=== PATIENT | female | born 1995 | race Caucasian/White ===

== ENCOUNTER 2023-09-06 15:20 | Outpatient (CLI) | payer OTHER, SELFPAY | END 2023-09-06 15:21 | disposition home or self-care (01) | PROVIDERS: Visit Provider Advanced Practice Midwife | DX: Z34.93 Encounter for supervision of normal pregnancy, unspecified, third trimester (principal); Z3A.31 31 weeks gestation of pregnancy | CPT/HCPCS: 76805; 86592; 86787; 86850; J2791 ==

== ENCOUNTER 2023-10-11 14:15 | Outpatient (CLI) | payer OTHER, SELFPAY ==
[2023-10-12 12:37] LABS: Strep B DNA Probe Negative (Negative)
[2023-10-12 13:16] LABS: Strep B Susceptibility Needed? No
== END 2023-10-11 14:16 | disposition home or self-care (01) ==
LOC: NFLDREF 14:15
PROVIDERS: Visit Provider Advanced Practice Midwife
DX: Z34.93 Encounter for supervision of normal pregnancy, unspecified, third trimester (principal); Z3A.36 36 weeks gestation of pregnancy
CPT/HCPCS: 87081; 87653

== ENCOUNTER 2023-10-12 19:56 | Outpatient (CLI) | payer OTHER, SELFPAY | END 2023-10-12 19:57 | disposition home or self-care (01) | LOC: AMB 10-14 10:03 | PROVIDERS: Visit Provider Emergency Medicine Emergency Medical Services | DX: R55 Syncope and collapse (principal) | CPT/HCPCS: A0998 ==

== ENCOUNTER 2023-11-02 05:29 | Outpatient (CLI) | payer OTHER, SELFPAY ==
[2023-11-02 05:44] VITALS: BP 114/69; PULSE 91
[2023-11-02 05:59] VITALS: TEMP 36.8
[2023-11-02 06:09] LABS: Amnisure Rom* Negative
--- NOTE | 2023-11-02 06:44 | PC.OBNST ---
NST Note NST Note Start: 11/02/23 04:35 Freq: ONCE Status: Active Protocol: Document 11/02/23 06:43 LUZMA (Rec: 11/02/23 06:44 LUZMA [id number]) NST Note 1 Para (# of births) 0 EDC 11/07/23 Gestational Age In Weeks & Days 39 Weeks & 2 Days Patient Presented with Complaint(s) of Vaginal bleeding Reactive Yes Appropriate for Gestational Age Yes [place] Veronica RNC Date 11/02/23 Reactive Yes Appropriate for Gestational Age Yes [place] Gonsalez RNC Date 11/02/23 OB NST charge Yes Complete NST Note via Write Note Yes The provider's electronic signature indicates the NST is reactive/appropriate for gestational age. *Note to provider: If an addendum is required, open the patient's chart and click on the note under the Nurse/Allied Health tab.
== END 2023-11-02 07:02 | disposition home or self-care (01) ==
LOC: OB OUT 05:30 → OB 05:31
PROVIDERS: Visit Provider Advanced Practice Midwife
DX: O47.1 False labor at or after 37 completed weeks of gestation (principal); Z3A.39 39 weeks gestation of pregnancy
CPT/HCPCS: 59025; 84112; G0463

== ENCOUNTER 2023-11-03 05:13 | Outpatient (CLI) | payer OTHER, SELFPAY ==
[2023-11-03 05:23] VITALS: BP 115/58; PULSE 229; PULSE 77; RESP 14; TEMP 36.6; O2SAT 81
[2023-11-03 06:19] LABS: Amnisure Rom* Negative; Clue Cells No Clue Cells Seen (None Seen); Trichomonas No Trichomonas Seen (None Seen); Yeast No Yeast Seen (None Seen)
--- NOTE | 2023-11-03 09:13 | PC.OBNST ---
NST Note NST Note Start: 11/03/23 05:14 Freq: ONCE Status: Active Protocol: Document 11/03/23 09:11 ABP (Rec: 11/03/23 09:12 ABP [id number]) NST Note 1 Para (# of births) 0 EDC 11/07/23 Gestational Age In Weeks & Days 39 Weeks & 3 Days Patient Presented with Complaint(s) of Contractions/cramping Reactive Yes RN Madie Guerra RN Date 11/03/23 Reactive Yes [place] Bravo RN Date 11/03/23 OB NST charge Yes Complete NST Note via Write Note Yes The provider's electronic signature indicates the NST is reactive/appropriate for gestational age. *Note to provider: If an addendum is required, open the patient's chart and click on the note under the Nurse/Allied Health tab.
== END 2023-11-03 08:50 | disposition home or self-care (01) ==
LOC: OB OUT 05:13 → OB 05:14
PROVIDERS: Visit Provider Advanced Practice Midwife
DX: O47.1 False labor at or after 37 completed weeks of gestation (principal); Z3A.39 39 weeks gestation of pregnancy
CPT/HCPCS: 59025; 84112; 87210; G0463

== ENCOUNTER 2023-11-03 13:59 | Inpatient (IN) | payer OTHER, SELFPAY ==
[2023-11-03] VITALS (15 sets, daily range): BP systolic 100–114; BP diastolic 55–73; PULSE 67–110; RESP 16–18; TEMP 36.6–37.1; O2SAT 99; BMI 31.1
--- NOTE | 2023-11-03 14:05 | W.PM.LDBA ---
Subjective History of Present Illness Date Seen: 11/03/23 Narrative: Patient is being admitted to Labor and Delivery for labor. She is a 27 year old at 39.3weeks gestation. Her full history and physical was dictated by Neil More CNM on 10/20/23. Please see this for details. Aakash was laboring at home today after being seen in triage earlier in the day. She returned with contractions that were more painful and consistent. On arrival she is 4cm/100/0 with bulging bag. Specific Issues/Plans Partner: Aris H&P done by JOLLY Sandra on 10/20/2023 1. Limited care. First visit after intake was at 18.2 wks -anatomy scan done at transfer visit at 31.0 wks -Rhogam given at transfer visit -declines vaccines, including tdap, flu, RSV and covid -28 week labs and varicella collected today. Will return this week to complete 1 hr GCT, passed 2. Varicella equivocal -vaccine PP 3. A- Rhogam given at 31 wk transfer Rhogam PP Needs PP pap Records from [facility] Care: Labs from 05/21 Urine Drug Screen: Negative Blood type: A- Antibody screen: negative Hgb: 12.6 platelets: 219 Rubella: immune RPR: neg Hep B: Antibody neg. Surface antibody reactive. Surface antigen non-reactive. Hep C: Neg Sickle Cell screen negative HgbA1c 4.4 HIV neg 04/06/23: Positive test. Scheduled for intake visit. OB intake 05/05/23 1st OB 06/10/23 at 18.2 weeks. Scheduled for anatomy scan at that time. UNITY results negative. Needs Pap PP RHOGAM given on 09/06/23. OB - Problem Based A/P Additional Plan (1) with 39 completed weeks gestation: Status: Acute (2) Pain during labor: Status: Acute Plan Assessment:?? at 39.3 weeks gestation?? GBS negative? Patient is coping well with challenges of labor.?? Labor type: Spontaneous, Early labor? Category 1 FHR pattern.? complicated by: 1. Limited care. First visit after intake was at 18.2 wks -anatomy scan done at transfer visit at 31.0 wks -Rhogam given at transfer visit -declines vaccines, including tdap, flu, RSV and covid -28 week labs and varicella collected today. Will return this week to complete 1 hr GCT, passed 2. Varicella equivocal -vaccine PP 3. A- Rhogam given at 31 wk transfer Rhogam PP Plan:?? ?Admit to L & D? IV access: NA at this time, insert PRN Monitoring per policy: intermittent? Candidate for analgesia of choice.? Planning unmedicated Desires waterbirth.? Consent signed and Hep C negative Reviewed risks and benefits of AROM vs continued labor without intervention, patient desired AROM, performed with consent for clear fluid.? Patient encouraged to reposition and ambulate to promote physiologic labor and . Anticipate ? Delivery/Labor/Induction Plan Plan: expectant management OB Exam Physical Exam Vital signs: Pulse BP 86 108/73 11/03/23 13:33 11/03/23 13:33 Narrative: Vitals Reviewed Constitutional:? Alert and oriented x3 HEENT:? Normocephalic, atraumatic Neck:? Supple Lungs:? Clear to auscultation bilaterally Heart:? Regular rate and rhythm, no murmur, rub or gallop Abdomen:? Soft, nontender, and gravid. Vertex by Julio's, confirmed with cervical exam. Extremities:? No edema or erythema Cervix: 4 cm/100%/0 station/vertex NST: 140 bpm/moderate variability/+accelerations/-decelerations/moderate contractions Detailed Labor and Delivery Exam Patient Gravid: Yes Fetus (Single) Amniotic Membrane Status: AROM Amniotic Membrane Fluid Description: Clear
--- NOTE | 2023-11-03 15:59 | P.OBPN_ITS ---
Subjective Date Seen: 11/03/23 Narrative: ?Demerise is coping well with labor pain/contractions. ?Aris is with her for support. ?She would like to continue with breathing and repositioning for comfort and pain management. Since membranes were ruptured she reports an increase in intensity and frequency of her contractions. She is currently needing to breathe through each contraction. ? Objective Exam: VSS, afebrile General Appearance:? Calm, cooperative. ?No acute distress. ? Psychiatric Exam: Alert and oriented, appropriate affect Abdomen: Gravid Ctx: ?Q 2-3 min apart. ? ?Moderate ? FHTs: ?intermittently monitored SVE: deferred at this time Membranes: AROM clear fluid Vital Signs: Last Vital Signs Temp 98.7 F 11/03/23 15:15 Pulse 86 11/03/23 13:33 Resp 16 11/03/23 15:15 BP 108/73 11/03/23 13:33 Plan Plan: Assessment:?? at 39.3 weeks gestation?? GBS neg Patient is coping well with challenges of labor.?? Labor type: Spontaneous, Early labor? Intermittently monitored? complicated by: complicated by: 1. Limited care. First visit after intake was at 18.2 wks -anatomy scan done at transfer visit at 31.0 wks -Rhogam given at transfer visit -declines vaccines, including tdap, flu, RSV and covid -28 week labs and varicella collected today. Will return this week to complete 1 hr GCT, passed 2. Varicella equivocal -vaccine PP 3. A- Rhogam given at 31 wk transfer Rhogam PP Plan:?? * IV access: NA at this time, insert PRN * Continue with routine intrapartum cares as ordered. * Nonpharmacologic comfort measures per patient preference.Candidate for analgesia of choice.? Planning unmedicated * Patient encouraged to reposition and ambulate to promote physiologic labor and . * Planning waterbirth * Anticipate ? ?
[2023-11-03] MEDS: OXYTOCIN 10 UNIT/ML INJ IM (20:27)
[2023-11-03] MEDS: LIDOCAINE 1 % PF 30 ML INJECTION (20:38)
--- NOTE | 2023-11-03 21:04 | W.PM.VAGDE_ITS ---
OB Procedure Vag Delivery Mother Details Mother Details: The patient is a 27 year-old, 1, Para 0, admitted on 11/03/23 at 39.3 weeks gestation. : 1 Para: 1 Weeks Gestation: 39.3 Admission Date: 11/03/23 Additional Details Amniotic Membrane Status: AROM Amniotic Membrane Rupture Date: 11/03/23 Amniotic Membrane Rupture Time: 14:02 Amniotic Membrane Fluid Description: Clear Analgesia/Anesthesia Type: None Waterbirth: Yes Pitcoin: No Intrapartal Events: Labor Augmentation (AROM) Delivery augmentation: rupture of membranes Labor Onset: 16:00 Complete: 17:55 (assumed with pushing) Pushin:55 Heart: heart tones during second stage were intermittently monitored. FHR 130- 140 no audible decels heard. Delivery Details Delivery Date: 11/03/23 Delivery Time: 19:54 Route of delivery: Infant Gender: Male Infant Viability: Alive; Heart Rate Present Position at Delivery: OA Delivery Details: 27?y.o?at 39.3 weeks.? Aakash arrived with frequent contractions which she needed to breathe through. She was 4cm/100/0 with bulging bag of dorman. Reviewed options of continuing to labor or augment with AROM. She elected AROM and had clear fluid. Contractions then were much stronger and she was managing well with position changes and laboring in the regular tub. She then requested to get into the waterbirth tub and not long after began to feel like pushing. She was assumed complete with pushing at 1755. She pushed in multiple positions including, right and left side lying and hands and knees. ? Spontaneous vaginal delivery at 1953 of?a viable?male .??Delivered in vertex OA position.??Shoulders delivered easily.?There was a nuchal cord times two and the cord was wrapped around the lower body. ? Spontaneous cry noted.??Infant placed on maternal abdomen.??Cord?was clamped and cut after a 5+ minute delay.??Nose and mouth were bulb suctioned.? Shoulder dystocia: no? Nuchal cord: yes times 2 and around the lower body? Meconium stained?fluid: no? Water : yes? ? ? 8 at 1 minute and 9 at 5 minutes.? ? Placenta delivered spontaneously and?complete?at 2026 with a?3 vessel?cord.?? Bleeding controlled with fundal massage and?pitocin?for AMTSL.? ? Mother and were stable after delivery.? ? Lacerations:? labial laceration on the left, repaired with 3-0?vicryl. Laceration was not bleeding but felt she may have more discomfort if not repaired. Given the option to leave laceration or repair and she chose to have the repair done with shared decision making. ? Bleeding?post delivery?was: minimal . ?The fundus was firm to palpation.? Blood loss: 125?mL.? Blood loss measurement type: QBL? ? ? Sponge,?lap?and needles counts are correct.? Mother and infant were stable after delivery.? 1 Minute Interval Total Score: 8 5 Minute Interval Total Score: 9 Additional Details Shoulder Dystocia: No Placenta Delivery Time: 20:27 Placental Delivery Description: Spontaneous Delivery repair: Vicryl Procedure Done: Global Blood Loss: 125 Laceration: Labial (left) Blood Loss Measurement Type: QBL Bakri Used: No Sponge/Need Count Correct: Yes Cord Vessel Description: 3 Vessels, Nuchal Cord (times 2), Around Body (lower body) and Delivered through Event Summary Status: Mother and were stable after delivery. Disposition: floor
[2023-11-04] VITALS (7 sets, daily range): BP systolic 100–125; BP diastolic 55–74; PULSE 67–86; RESP 16–17; TEMP 36.9–37.3; O2SAT 98–99
--- NOTE | 2023-11-04 16:23 | P.DS_ITS ---
Documented by User: Perry Love 11/04/23 17:00 DS: Providers Provider Time Seen by Provider: 16:23 Date Seen: 11/04/23 Date of admission: 11/03/23 13:59 Primary care physician: Not a Local Provider Admitting Clinician: Andry Metcalf CNM Attending Physician on discharge: Andry Metcalf CNM Date of Discharge: 11/04/23 DS: Diagnosis Discharge Diagnosis (1) care following vaginal delivery: Status: Acute (2) care and examination of lactating mother: Status: Acute Exam Narrative: Exam Narrative: GENERAL APPEARANCE:? normal affect, alert, no distress MOOD:? appropriate BREAST: Large, soft breast tissue. True- left nipple inversion, right nipple and scabbed. ABDOMEN:? soft, non-tender the uterine fundus at Umbilicus, Midline and is appropriate for the stage of recovery. PERINEUM:? mild edema of the perineum, there is a Perineal Laceration, healing well. LOCHIA: Small EXTREMITIES:? normal and edema Const: Vital Signs, click to edit/add: Vital Signs - 24 hr 11/03/23 18:30 11/03/23 19:31 11/03/23 20:28 Temperature 98.4 F 97.9 F Pulse Rate 75 Pulse Rate [Pulse Oximeter] Respiratory Rate 18 17 Blood Pressure 112/58 L Blood Pressure [Ri ght Arm] [facility] 20:47 11/03/23 21:02 11/03/23 21:17 Temperature Pulse Rate 80 110 H 75 Pulse Rate [Pulse Oximeter] Respiratory Rate Blood Pressure 113/59 L 107/60 106/57 L Blood Pressure [Ri ght Arm] Pulse Oximetry [facility] 11/03/23 21:32 11/03/23 21:47 11/03/23 22:02 Temperature Pulse Rate 67 68 69 Pulse Rate [Pulse Oximeter] Respiratory Rate Blood Pressure 107/55 L 108/56 L 112/58 L Blood Pressure [Ri ght Arm] Pulse Oximetry [facility] 11/03/23 22:17 11/03/23 23:52 11/04/23 02:03 Temperature 98.1 F 98.9 F Pulse Rate 67 Pulse Rate [Pulse Oximeter] 86 86 Respiratory Rate 17 16 Blood Pressure 100/55 L Blood Pressure [Ri ght Arm] 114/66 121/74 Pulse Oximetry 99 98 Oxygen Delivery Me thod Room Air Room Air 11/04/23 05:49 11/04/23 09:29 11/04/23 13:19 Temperature 99.2 F 98.5 F Pulse Rate Pulse Rate [Pulse Oximeter] 82 86 67 Respiratory Rate 17 17 17 Blood Pressure Blood Pressure [Ri ght Arm] 106/69 118/72 109/65 Pulse Oximetry 99 99 99 Oxygen Delivery Me thod Room Air Room Air Room Air Documenting provider has reviewed patient's vital signs: yes Common normals: no apparent distress OB - DS: Summary Hospital Course Hospital Course: The patient is a 27 year old G 1 P 1 at 39.4 weeks gestation that was admitted to the Center on 11/03/23 for spontaneous onset of labor . She had an uncomplicated vaginal delivery. She delivered a viable male . the patient has done well. Her vitals are stable, She is up voiding with difficulty, lochia is small and fundus firm. She has expressed interest in discharging home after 24 hours. Reviewed risk of early discharge considering her baby needing assistance with latching on left breast due to true- nipple inversion. Provided education and assistance with positioning and latch. Mother was able to return demonstration. Primary RN notified. Recommended that she stays overnight so staff could assist her with as needed. Problems: [] plan: Rhogam: Given Discharge home with baby. Follow up in 2 weeks and 6 weeks. , may see if needed Time spent discussing smoking cessation with patient: more than 10 minutes Peripartum Data delivery method: Vaginal Laceration description: Periurethral - 1st Degree complications: none [place] Gender: Male Infant Discharge Plan: Home [place] Infant A Infant Gender: Male Discharge Plan: Home Status at Discharge Functional status at discharge: independent ambulation Overall status at discharge: patient is progressing back to baseline Time Spent with Patient Time attestation: Total time spent providing and/or coordinating discharge services: Time spent: Less than 30 minutes Discharge Plan Discharge Disposition: Home, Self-Care Date of Admission: 11/03/23 13:59 Attending Provider on Discharge: Geri More Primary Care Provider: Provider,Not a Local Condition: Stable Anticipated Discharge Date/Time: 11/04/23 20:00 Discharge Medications: New docusate sodium 100 mg Capsule 100 mg PO DAILY Qty: 90 0RF ibuprofen 600 mg Tablet 600 mg PO Q6H PRNQty: 60 0RF acetaminophen 500 mg Tablet 1,000 mg PO Q6H PRN (Reason: pain/fever) Qty: 0 0RF Continued DHA 200 mg capsule 200 mg PO DAILY omega 1-hun-gdj-fish oil [Fish Oil] 60-90-500 mg capsule 1 cap PO QDAY cholecalciferol (vitamin D3) 25 mcg (1,000 unit) capsule 25 mcg PO QDAY magnesium 200 mg tablet 200 mg PO QDAY Discharge Orders: Discharge Order (Routine); Ordered 11/04/23 Ordered By: Geri More Patient Education: OB Over the Counter Medication Information, OB Vaginal/Breast Feeding Additional Instructions: Discharge instructions were reviewed with the patient including signs and symptoms of infection and home going medications Nothing vaginally for 6 weeks: no tampons or intercourse Off Work or School for 6 weeks 2-week visit: discuss feeding concerns, review control options and screen for anxiety/depression. 6-week visit for an annual exam. consultation services are available to all mothers and babies for the first year after delivery.? To make an appointment, please call [phone]. Activity Level: Activity as Tolerated Discharge Diet: Regular Follow Up Appointments: [facility] [Provider Group] Forms: [facility] Info Instructions Documented by User: Geri More CNM 11/04/23 17:19 DS: Diagnosis Discharge Diagnosis (1) care following vaginal delivery: Status: Acute (2) care and examination of lactating mother: Status: Acute OB - DS: Summary Hospital Course Hospital Course: The patient is a 27 year old G 1 P 1 at 39.4 weeks gestation that was admitted to the Center on 11/03/23 for spontaneous onset of labor . She had an uncomplicated vaginal delivery. She delivered a viable male infant. the patient has done well. Her vitals are stable, She is up voiding with difficulty, lochia is small and fundus firm. She has expressed interest in discharging home after 24 hours. Reviewed risk of early discharge considering her baby needing assistance with latching on left breast due to true- nipple inversion. Provided education and assistance with positioning and latch. Mother was able to return demonstration. Primary RN notified. Recommended that she stays overnight so staff could assist her with as needed. Problems: none plan: Rhogam: Given Discharge home with baby. Follow up in 2 weeks and 6 weeks. , may see if needed I,?Geri More, MARIA L, JOLLY, was present for visit and have reviewed and agree with documentation by the Certified Nurse Midwifery Student. Discharge Plan Discharge Disposition: Home, Self-Care Date of Admission: 11/03/23 13:59 Attending Provider on Discharge: Geri More Primary Care Provider: Provider,Not a Local Condition: Stable Anticipated Discharge Date/Time: 11/04/23 20:00 Discharge Medications: New docusate sodium 100 mg Capsule 100 mg PO DAILY Qty: 90 0RF ibuprofen 600 mg Tablet 600 mg PO Q6H PRNQty: 60 0RF acetaminophen 500 mg Tablet 1,000 mg PO Q6H PRN (Reason: pain/fever) Qty: 0 0RF Continued DHA 200 mg capsule 200 mg PO DAILY omega 0-yyh-xgc-fish oil [Fish Oil] 60-90-500 mg capsule 1 cap PO QDAY cholecalciferol (vitamin D3) 25 mcg (1,000 unit) capsule 25 mcg PO QDAY magnesium 200 mg tablet 200 mg PO QDAY Discharge Orders: Discharge Order (Routine); Ordered 11/04/23 Ordered By: Geri More Patient Education: OB Over the Counter Medication Information, OB Vaginal/Breast Feeding Additional Instructions: Discharge instructions were reviewed with the patient including signs and symptoms of infection and home going medications Nothing vaginally for 6 weeks: no tampons or intercourse Off Work or School for 6 weeks 2-week visit: discuss infant feeding concerns, review control options and screen for anxiety/depression. 6-week visit for an annual exam. consultation services are available to all mothers and babies for the first year after delivery.? To make an appointment, please call [phone]. Activity Level: Activity as Tolerated Discharge Diet: Regular Follow Up Appointments: [facility] [Provider Group] Forms: [employer] Info Instructions
[2023-11-04] MEDS: LANOLIN CREAM 1 APPLIC TOPICAL (19:41)
== END 2023-11-04 22:10 | disposition home or self-care (01) | DRG 807 ==
LOC: OB OUT 13:59 → OB 13:59
PROVIDERS: Admitting Provider Advanced Practice Midwife; Visit Provider Advanced Practice Midwife
DX: O70.0 First degree perineal laceration during delivery (principal); Z37.0 Single live birth; Z3A.39 39 weeks gestation of pregnancy; O26.893 Other specified pregnancy related conditions, third trimester; Z67.11 Type A blood, Rh negative
CPT/HCPCS: 36415; 85461; 86592; A9270; J2001; J2590; J2791